=== PATIENT | male | born 1955 | race Caucasian/White ===

== ENCOUNTER → 2020-08-31 | Outpatient (CLI) | payer BC, MEDICARE ==
--- NOTE | 2020-09-01 04:47 | REP ---
INDICATION: AAA SCREENING COMPARISON: None. TECHNIQUE: Real time pompa scale ultrasound examination using curved array transducer. FINDINGS: The abdominal aorta demonstrates atherosclerotic changes without evidence for aneurysm. Proximal aorta: Obscured by bowel gas cm Aorta at renal arteries: 2.1 x 1.8 cm Mid aorta: 2.0 x 2.1 cm Distal aorta: 1.8 x 1.7 cm Right common iliac artery: 0.9 x 0.9 cm Left common iliac artery: 0.9 x 1.1 cm IMPRESSION: Atherosclerotic changes without evidence for abdominal aortic aneurysm. <Electronically signed by Tomi Gandhi > 09/01/20 [id number]
== END ==
LOC: M RAD 10:00
PROVIDERS: ATTEND Family Medicine
DX: F17.210 Nicotine dependence, cigarettes, uncomplicated (principal)

== ENCOUNTER → 2022-01-26 | Outpatient (CLI) | payer MEDICARE, BC | LOC: M RAD 12:48 | PROVIDERS: ATTEND Family Medicine | DX: Z12.2 Encounter for screening for malignant neoplasm of respiratory organs (principal); F17.210 Nicotine dependence, cigarettes, uncomplicated ==

== ENCOUNTER → 2022-06-15 | Outpatient (CLI) | payer MEDICARE, BC ==
[~2022-06-15] MED LIST: EZET1TAB96 PO; JANT5TAB; LOVE1INJ SC; METO1TAB33 PO
== END ==
LOC: M LABSMTC 11:13
PROVIDERS: ATTEND Anesthesiology
DX: Z01.812 Encounter for preprocedural laboratory examination (principal)

== ENCOUNTER 2022-06-20 07:36 | Day surgery (SDC) | payer MEDICARE, BC ==
[~2022-06-20] VITALS: Ht 185.4 cm; Wt 90.3 kg
[~2022-06-20 07:36] MED LIST changes: +ceFAZolin SOD 2 GM in IV 1 EA IV ONE
[2022-06-20] MEDS ORDERED: SUGAMMADEX SODIUM 500 MG/5 ML VIAL (BRIDION) As Ordered ONE (07:53)
[2022-06-20] MEDS ORDERED: LIDOCAINE 2% 100MG/5ML SDV (FOR ANES.) As Ordered ONE (07:53)
[2022-06-20] MEDS ORDERED: propofoL 200 MG/20 ML VIAL As Ordered ONE (07:53)
[2022-06-20] MEDS ORDERED: KETOROLAC 60MG 2ML VIAL As Ordered ONE (07:53)
[2022-06-20] MEDS ORDERED: ROCURONIUM BROMIDE 50MG/5ML VIAL As Ordered ONE (07:53)
[2022-06-20] MEDS ORDERED: ONDANSETRON 4MG 2ML VIAL As Ordered ONE (07:53)
[2022-06-20] MEDS ORDERED: LR 1,000 ML IV SCH ×2 (08:00→10:50)
[2022-06-20] MEDS ORDERED: MIDAZOLAM INJ 2MG/2ML VIAL As Ordered ONE (08:01)
[2022-06-20] MEDS ORDERED: fentaNYL 100 MCG/2 ML INJECTION As Ordered ONE ×2 (08:01→09:50)
[2022-06-20] MEDS ORDERED: LABETALOL 100MG/20ML VIAL As Ordered ONE (08:21)
[2022-06-20 08:40] LABS: BLOOD UREA NITROGEN 15 MG/DL (9-23); CALCIUM LEVEL 8.6 MG/DL (8.3-10.6); CARBON DIOXIDE LEVEL 27 MMOL/L (20-31); CHLORIDE LEVEL 106 MMOL/L (98-107); CREATININE FOR GFR 1.09 MG/DL (0.70-1.30); GLOMERULAR FILTRATION RATE > 60.0 (>49); GLUCOSE, FASTING 100 MG/DL (74-106); SODIUM LEVEL 139 MMOL/L (136-145)
[2022-06-20] MEDS ORDERED: BUPIVACAINE/EPIN 0.25% 30ML VIAL As Ordered ONE (09:12)
[2022-06-20] MEDS ORDERED: GLYCOPYRROLATE INJ 0.2 MG/ML 2 ML VIAL As Ordered ONE (10:26)
[2022-06-20] MEDS ORDERED: oxyCODONE 5MG TAB PO PRN ×3 (10:50→12:45)
[2022-06-20] MEDS ORDERED: HYDROMORPHONE HCL 0.5 MG/ 0.5 ML SYRINGE IV PRN (10:50)
[2022-06-20] MEDS ORDERED: ONDANSETRON 4MG 2ML VIAL IV PRN (10:50)
[2022-06-20] MEDS ORDERED: fentaNYL 100 MCG/2 ML INJECTION IV PRN (10:50)
[2022-06-20 12:25] VITALS: BP 142/74
[2022-06-20] MEDS ORDERED: NS 1,000 ML IV SCH (12:45)
== END 2022-06-20 12:42 | disposition home or self-care (01) ==
LOC: M SDC 07:36
PROVIDERS: ATTEND Surgery
DX: K40.90 Unilateral inguinal hernia, without obstruction or gangrene, not specified as recurrent (principal); I10 Essential (primary) hypertension; E78.5 Hyperlipidemia, unspecified; Z98.61 Coronary angioplasty status; Z79.01 Long term (current) use of anticoagulants; K57.92 Diverticulitis of intestine, part unspecified, without perforation or abscess without bleeding; F17.210 Nicotine dependence, cigarettes, uncomplicated; Z88.8 Allergy status to other drugs, medicaments and biological substances
CPT/HCPCS: 36415; 49650; 80048; 93005; C1781; J0690; J1100; J2250; J2405; J3010; S2900

== ENCOUNTER → 2023-06-01 | Outpatient (CLI) | payer MEDICARE, BC ==
[~2023-06-01] MED LIST changes: -ceFAZolin SOD 2 GM in IV 1 EA IV ONE
== END ==
LOC: M RAD 10:43
PROVIDERS: ATTEND Family Medicine
DX: Z12.2 Encounter for screening for malignant neoplasm of respiratory organs (principal); F17.210 Nicotine dependence, cigarettes, uncomplicated; R91.8 Other nonspecific abnormal finding of lung field

== ENCOUNTER → 2024-07-01 | Outpatient (CLI) | payer MEDICARE, BC | LOC: M RAD 07:53 | PROVIDERS: ATTEND Family Medicine | DX: Z87.891 Personal history of nicotine dependence (principal) ==

== ENCOUNTER → 2025-01-05 | Outpatient (CLI) | payer MEDICARE, BC | LOC: M RAD 15:30 | PROVIDERS: ATTEND Family Medicine | DX: I25.10 Atherosclerotic heart disease of native coronary artery without angina pectoris (principal); I65.23 Occlusion and stenosis of bilateral carotid arteries ==